=== PATIENT | female | born 1950 | race Hispanic/Latino ===

== ENCOUNTER 2017-08-16 00:33 | Inpatient (IN) | payer MEDICARE, OTHER ==
[~2017-08-16] VITALS: Ht 149.9 cm; Wt 56.2 kg
[~2017-08-16 00:33] MED LIST: ANUSOL HC25 MG/SUPP RC; CROMOLYN OP; DEXTROMETHORPHAN PO; GUAIFENESIN PO; LEVALBUTEROL IH; LEVAQUIN500 MG PO; METFORMIN HCL500 MG PO; METFORMIN HYDR100 GM PO; Z.0.CIPRO500 MG PO; Z.0.CIPROFLOXACIN500 PO; Z.0.COLACE100 MG PO; Z.0.CRESTOR40 MG PO; Z.0.FENOFIBRATE160 M PO; Z.0.GLIMEPIRIDE4 MG PO; Z.0.LISINOPRIL10 MG PO; Z.0.METOPROLOL TART5 PO; Z.0.MOTRIN800 MG PO; Z.0.NEXIUM40 MG PO; Z.0.PLAVIX75 MG PO; Z.0.VICODIN HP TAB1 PO; Z.1.ISOSORBIDE MONO3 PO; [UNRECOGNIZED DRUG - OTHER] PO; [UNRECOGNIZED DRUG - OTHER] TP
[2017-08-16 01:00] LABS: BASOPHILS % 0.4 % (0.0-1.0); EOSINOPHILS # (AUTO) 0.2 (0.0-0.4); EOSINOPHILS % 1.8 % (0.0-6.0); HEMATOCRIT 36.9 % (34.2-44.1); HEMOGLOBIN 12.1 g/dL (12.0-16.0); MEAN CORPUSCULAR HEMOGLOBIN 27.2 pg (28-32); MEAN CORPUSCULAR HGB CONC 32.8 g/dL (31-35); MEAN CORPUSCULAR VOLUME 82.9 fL (81-99); MONOCYTES # (AUTO) 0.5 (0.2-0.8); MONOCYTES % 4.6 % (4.4-11.3); NEUTROPHILS # (AUTO) 7.3 (2.1-6.9); PLATELET COUNT 237 x10e3/uL (140-360); RED BLOOD COUNT 4.45 x10e6/uL (3.6-5.1); RED CELL DISTRIBUTION WIDTH 14.6 % (11.7-14.4)
[2017-08-16] MEDS ORDERED: DIATRIZOATE MEGL/DIATRIZOA SOD 30 ML BTL PO ONE (01:01)
[2017-08-16 01:04] LABS: INR 0.87; PARTIAL THROMBOPLASTIN TIME 28.6 seconds (23.8-35.5); PROTHROMBIN TIME 12.3 seconds (11.9-14.5)
[2017-08-16 01:11] LABS: BILIRUBIN,URINE 1+ (NEGATIVE); KETONES,URINE NEGATIVE (NEGATIVE); LEUKOCYTE ESTERASE ,URINE 2+ (NEGATIVE); NITRITE,URINE NEGATIVE (NEGATIVE); PROTEIN,URINE DIPSTICK 3+ (NEGATIVE); URINE UROBILINOGEN 1 mg/dL (0.2 - 1)
[2017-08-16 01:13] LABS: CLARITY,URINE SL CLOUDY (CLEAR); COLOR,URINE YELLOW (YELLOW)
[2017-08-16 01:14] LABS: ALANINE AMINOTRANSFERASE 24 IU/L (0-55); ALBUMIN 4.1 g/dL (3.5-5.0); ALKALINE PHOSPHATASE 85 IU/L (40-150); AMYLASE 107 U/L (25-125); BLOOD UREA NITROGEN 22 mg/dL (7-26); BUN/CREATININE RATIO 28 (6-25); CALCIUM 9.9 mg/dL (8.4-10.2); CARBON DIOXIDE 24 mmol/L (22-29); CREATINE KINASE 65 IU/L (29-168); CREATININE, SERUM 0.78 mg/dL (0.57-1.11); EST GLOMERULAR FILTRATION RATE > 60 ML/MIN (60-); GLUCOSE 204 mg/dL (74-118); LIPASE 16 U/L (8-78)
[2017-08-16 01:24] LABS: CHLORIDE 101 mmol/L (98-107); MAGNESIUM 1.9 MG/DL (1.3-2.1); POTASSIUM 4.3 mmol/L (3.5-5.1); SODIUM 139 mmol/L (136-145)
[2017-08-16 01:25] LABS: ANION GAP 18.3 mmol/L (8-16)
[2017-08-16 01:26] LABS: BACTERIA,URINE FEW /HPF; EPITHELIAL CELLS,URINE FEW /LPF; RBC,URINE 0-5 /HPF (0-5)
[2017-08-16] MEDS ORDERED: PANTOPRAZOLE 40 MG 10ML VIAL IV STA (01:36)
[2017-08-16] MEDS ORDERED: MORPHINE SULFATE 2 MG/ML SYR IV STA (01:36)
[2017-08-16] MEDS ORDERED: SODIUM CHLORIDE 0.9% 1000ML 1,000 ML IV STA (01:36)
[2017-08-16] MEDS ORDERED: ONDANSETRON HCL INJ 2 MG/ML VIAL IV STA ×2 (01:36→07:26)
--- NOTE | 2017-08-16 03:49 | Diagnostic Imaging Report ---
EXAM: CHEST SINGLE (PORTABLE), AP 1 view ORDER DATE: 08/16/2017 12:49 AM Time stamp on exam: 0316 hours INDICATION: Abdominal pain, vomiting COMPARISON: None FINDINGS: LINES/TUBES: None LUNGS: No consolidations or edema. PLEURA: No effusions or pneumothorax. HEART AND MEDIASTINUM: Normal size and contour. Median sternotomy wires. BONES AND SOFT TISSUES: Distended stomach. IMPRESSION: No acute thoracic abnormality. Distended stomach. Signed by: Dr. Mariel Vásquez M.D. on 08/16/2017 3:46 AM
--- NOTE | 2017-08-16 03:49 | Diagnostic Imaging Report ---
EXAM: CT ABDOMEN AND PELVIS with IV CONTRAST DATE: 08/16/2017 12:49 AM Time stamp on Exam: 0309 hours INDICATION: Abdominal pain, vomiting COMPARISON: CT of the abdomen and pelvis January 11, 2017 TECHNIQUE: The abdomen and pelvis were scanned using a multidetector helical scanner. Coronal and sagittal reformations were obtained. Routine protocol performed. IV Contrast: 100 cc Isovue-370 Oral Contrast: Gastrografin CTDIvol has been reviewed. It is below the limits set by the Radiation Protocol Committee (RPC). FINDINGS: LOWER THORAX: No consolidations LIVER: No masses BILIARY: Cholelithiasis without evidence of cholecystitis SPLEEN: No masses PANCREAS: No masses ADRENALS: No nodules KIDNEYS: Symmetric perfusion. No enhancing masses. No hydronephrosis. GI TRACT: The stomach is distended and contains layering debris. Small bowel obstruction with transition point at the site of prior small bowel anastomosis in the left lower quadrant of the abdomen. There are is associated mesenteric edema and a few loops of small bowel with wall thickening. VESSELS: Surgical changes of aortobiiliac bypass graft PERITONEUM/RETROPERITONEUM: No free air or fluid. Mesenteric edema. LYMPH NODES: No lymphadenopathy REPRODUCTIVE ORGANS: Not visualized BLADDER: Unremarkable SOFT TISSUES: Unremarkable BONES: No suspicious bone lesions. IMPRESSION: Small bowel obstruction with transition point at site of prior small bowel resection. Associated mesenteric edema and thickened wall of a few loops of involved small bowel raises concern for closed loop obstruction with early ischemia. Signed by: Dr. Mariel Vásquez M.D. on 08/16/2017 3:45 AM
[2017-08-16] MEDS ORDERED: BENZOCAINE/TETRACAINE/BUTAMBEN AERO SPRAY 56 GM CAN TOP STA (03:52)
[2017-08-16] MEDS ORDERED: LORAZEPAM INJ 2 MG/ML VIAL IV ONE (04:30)
[2017-08-16] MEDS: PIPER-TAZ 3.375 GM 50 ML IV SCH ×4 (04:40→18:27)
[2017-08-16] MEDS: SODIUM CHLORIDE 0.9% 1000ML 1,000 ML IV SCH ×3 (05:00→21:10)
[2017-08-16] MEDS ORDERED: DEXTROSE 50% SYRINGE 50 ML IV PRN (05:15)
--- OUTSIDE RECORDS SUMMARY | 2017-08-16 05:22 | XMS REPORT ---
Author Author [facility] Address Unknown Phone Unavailable Care Team Providers Care Consultant [employer]. Vice President [employer] ) Name Role Phone CLARA LOWE Unavailable Unavailable Problems This patient has no known problems. Allergies, Adverse Reactions, Alerts This patient has no known allergies or adverse reactions. Medications This patient has no known medications. Results Test Description Test Time Test Comments Text Results Atomic Results Result Comments CHEST SINGLE (PORTABLE) [place] [address] Patient Name: SHELLI RICE MR #: [id number] : 1950 Age/Sex: 67/F Req #: [id number] Adm Physician: Ordered by: CLARA LOWE MD Report #: [id number] Location: ER Room/Bed: Procedure: [id number] DX/CHEST SINGLE (PORTABLE) Exam Date: Exam Time: REPORT STATUS: Signed EXAM: CHEST SINGLE (PORTABLE ), AP 1 view ORDER DATE: 08/16/2017 12:49 AM Time stamp on exam: 0316 hours INDICATION: Abdominal pain, vomiting COMPARISON: None FINDINGS: LINES/ TUBES: None LUNGS: No consolidations or edema. PLEURA: No effusions or pneumothorax. HEART AND MEDIASTINUM: Normal size and contour. Median sternotomy wires. BONES AND SOFT TISSUES: Distended stomach. IMPRESSION: No acute thoracic abnormality. Distended stomach. Signed by: Dr. Ana Dyer M.D. on 08/16/2017 3:46 AM Dictated By: ANA DYER MD 5 Transcribed By: NOHEMI on 08/16/17345 COPY TO: CLARA LOWE MD CT ABDOMEN/PELVIS W [place] [address] Patient Name: SHELLI RICE MR #: [id number] : 1950 Age/Sex: 67/F Req #: [id number] Adm Physician: Ordered by: CLARA LOWE MD Report #: [id number] Location: ER Room/Bed: Procedure: [id number] CT/CT ABDOMEN/PELVIS W Exam Date: Exam Time: REPORT STATUS: Signed EXAM: CT ABDOMEN AND PELVIS with IV CONTRAST DATE: 08/16/2017 12:49 AM Time stamp on Exam: 0309 hours INDICATION: Abdominal pain , vomiting COMPARISON: CT of the abdomen and pelvis January 11, 2017 TECHNIQUE : The abdomen and pelvis were scanned using a multidetector helical scanner. Coronal and sagittal reformations were obtained. Routine protocol performed. IV Contrast: 100 cc Isovue-370 Oral Contrast: Gastrografin CTDIvol has been reviewed. It is below the limits set by the Radiation Protocol Committee (RPC). FINDINGS: LOWER THORAX: No consolidations LIVER: No masses BILIARY: Cholelithiasis without evidence of cholecystitis SPLEEN: No masses PANCREAS: No masses ADRENALS: No nodules KIDNEYS: Symmetric perfusion. No enhancing masses. No hydronephrosis. GI TRACT: The stomach is distended and contains layering debris. Small bowel obstruction with transition point at the site of prior small bowel anastomosis in the left lower quadrant of the abdomen. There are is associated mesenteric edema and a few loops of small bowel with wall thickening. VESSELS: Surgical changes of aortobiiliac bypass graft PERITONEUM/RETROPERITONEUM: No free air or fluid. Mesenteric edema. LYMPH NODES: No lymphadenopathy REPRODUCTIVE ORGANS: Not visualized BLADDER: Unremarkable SOFT TISSUES: Unremarkable BONES: No suspicious bone lesions. IMPRESSION: Small bowel obstruction with transition point at site of prior small bowel resection. Associated mesenteric edema and thickened wall of a few loops of involved small bowel raises concern for closed loop obstruction with early ischemia. Signed by : Dr. Ana Dyer M.D. on 08/16/2017 3:45 AM Dictated By: ANA DYER MD 0345 Transcribed By: NOHEMI on 08/16/17344 COPY TO: CLARA LOWE MD
[2017-08-16] MEDS: SODIUM CHLORIDE 0.9% 250ML IRRIG IR SCH ×2 (07:12→12:10)
[2017-08-16] MEDS: INSULIN REGULAR, HUMAN 100 UNIT/1 ML 3ML VIAL SQ SCH ×4 (07:55→21:00)
[2017-08-16 08:09] VITALS: BP 161/71
[2017-08-16] MEDS ORDERED: IOPAMIDOL 370 MG/ML 200 ML INFUS..BTL INJ ONE (08:56)
[2017-08-16] MEDS ORDERED: SODIUM CHLORIDE 0.9% 50ML 50 ML ONE (08:56)
[2017-08-16] MEDS ORDERED: SUCRALFATE1 GM PO (09:26)
[2017-08-16] MEDS ORDERED: METOPROLOL TART25 MG PO (09:26)
[2017-08-16] MEDS ORDERED: FOLIC ACID1 MG PO (09:26)
[2017-08-16] MEDS ORDERED: ACETAMINOPHEN 120 MG SUPP PR PRN (11:45)
[2017-08-16] MEDS ORDERED: NITROGLYCERIN 0.4 MG PATCH TOP PRN (11:45)
[2017-08-16] MEDS ORDERED: ALBUTEROL/IPRATROPIUM 3 ML NEB NEB PRN (11:45)
[2017-08-16 11:47] VITALS: BP 164/72
[2017-08-16 15:24] LABS: CREATINE KINASE 40 IU/L (29-168)
[2017-08-16 15:58] VITALS: BP 170/80
[2017-08-16 17:25] VITALS: BP 170/80
--- NOTE | 2017-08-16 17:59 | Consultation ---
DATE OF CONSULTATION: August 16, 2017 This is a 67-year-old woman who presented to the hospital because of abdominal pain, which is mainly in the epigastric area associated with some nausea and vomiting. The patient denies any bleeding along with this problem. Her workup so far revealed that the CBC was okay. Her CMP was okay. She did have a CAT scan of the abdomen and pelvis earlier which showed small bowel obstruction with transition point at the site of the prior small bowel resections. There is associated mesenteric edema and thickened wall of a few loops in above area. She said that she had bowel resection because of an obstruction before. Her other medical problem is significant again from previous history of small bowel obstruction as mentioned before, history of hypertension, history of diabetes, history of heart disease, history of coronary artery disease. She is status post hysterectomy. She apparently colonoscopy a couple of years or so ago, which was supposedly normal. ALLERGIES: NONE. SOCIAL HISTORY: Denies any alcohol abuse. FAMILY HISTORY: Noncontributory. HOME MEDICATIONS: On admission, including Plavix, Colace, fenofibrate, folic acid, hydrocodone, isosorbide, lisinopril, metformin, metoprolol, Crestor. REVIEW OF SYSTEMS: Denies any chest pain. Denies any shortness of breath. Denies any dysphagia or odynophagia. Denies any dysuria or hematuria or any kind of syncopal episode. PHYSICAL EXAMINATION GENERAL: The patient is awake, alert, appears to be stable and not in any acute distress. VITAL SIGNS: Afebrile with stable vital signs. HEENT: Normocephalic, atraumatic. Sclerae anicteric. NECK: Supple. HEART: Sounds regular. LUNGS: Clear. ABDOMEN: Soft. There is some mild epigastric tenderness. No rebound or mass. Not distended. EXTREMITIES: No edema or clubbing. LABORATORY DATA: CBC was okay. Chemistry is okay. CAT scan as mentioned before. IMPRESSION 1. Abdominal pain, nausea and vomiting. 2. Small bowel obstruction. RECOMMENDATIONS: An attempt to put in an NG tube was attempted several times, but not successful. The recommendation is to keep n.p.o. at this point. Agree with following KUB and on antibiotic for now. Follow clinically. Job#: [id number] cc:ZAYRA KELLEY MD
[2017-08-16] MEDS: METOPROLOL TARTRATE INJ 1 MG/ML VIAL IV SCH (21:00)
[2017-08-17] MEDS: SODIUM CHLORIDE 0.9% 1000ML 1,000 ML IV SCH ×2 (05:10→13:10)
[2017-08-17] MEDS: PIPER-TAZ 3.375 GM 50 ML IV SCH ×5 (05:31→23:46)
--- NOTE | 2017-08-17 06:26 | Consultation ---
DATE OF CONSULTATION: August 16, 2017 CHIEF COMPLAINT: Abdominal pain and vomiting. HISTORY OF PRESENT ILLNESS: This patient is a 67-year-old female with a 1-day history of periumbilical abdominal pain, severe in nature with associated vomiting times 2 yesterday. No hematemesis. Last bowel movement was yesterday. None today. Pain is somewhat better. Patient had an admission for small-bowel obstruction last year, which resolved spontaneously. PAST MEDICAL HISTORY: Positive for hypertension, diabetes, hyperlipidemia, peripheral vascular disease, intestinal obstruction. SURGICAL HISTORY: Positive for aorto-bifem bypass and intestinal resection for obstruction. ALLERGIES: PATIENT IS ALLERGIC TO CODEINE AND ASPIRIN. SOCIAL HABITS: No smoking or alcohol abuse. REVIEW OF SYSTEMS: No chest pain or shortness of breath at the present time. PHYSICAL EXAMINATION VITALS: Stable. Afebrile. GENERAL: She is awake, alert and in mild discomfort. HEENT: Sclerae anicteric. NECK: Supple. LUNGS: Clear. HEART: Regular rate and rhythm. No murmur. ABDOMEN: Soft. There is tenderness to palpation in the supraumbilical area with some guarding, but no rebound. EXTREMITIES: Without cyanosis or edema. White cell count is 9, hemoglobin of 12. Creatinine of 0.8. Liver function tests within normal limits. Lipase 16. CT scan showed intestinal obstruction with transitional point at the site of prior anastomosis. There is associated edema in the mesentery. ASSESSMENT: Intestinal obstruction likely secondary to adhesions. PLAN: Close monitoring. Patient may need intervention operatively if the pain persists or worsens. Thank you for the consultation. Job#: [id number] BAKARI
[2017-08-17] MEDS: MORPHINE SULFATE 2 MG/ML SYR IV PRN ×2 (06:35→10:35)
[2017-08-17] MEDS: ONDANSETRON HCL INJ 2 MG/ML VIAL IV PRN ×2 (06:35→10:30)
--- NOTE | 2017-08-17 06:38 | Diagnostic Imaging Report ---
Exam: AP view of the chest and supine and erect views of the abdomen August 17, 2017 at 0555 hours Comparison: AP view of the chest August 16, 2017 Indication: Small bowel obstruction Findings: Stable appearance of the chest. Oral contrast seen throughout the colon. Mildly dilated loops of central small bowel with wall thickening. No evidence of free air. Impression: 1. Stable findings of partial small bowel obstruction with wall thickening. 2. No acute cardiothoracic abnormality. Signed by: Dr. Mariel Vásquez M.D. on 08/17/2017 6:34 AM
--- NOTE | 2017-08-17 06:51 | History and Physical ---
PRESENTING COMPLAINT: Sudden onset apparent mid abdominal pain that started last night. HISTORY OF PRESENT ILLNESS: A 67-year-old female was admitted from the ER. The patient was brought to the ER from home by her family. The patient tells that she had mid abdominal pain that started yesterday morning and got gradually worse. The pain was moderate to severe initially. It became unbearable along with 2 episodes of vomiting. Vomitus did not contain any blood. The patient had last bowel movement yesterday morning, was normal in consistency. Did not have any blood in stool or black stool, as per the patient's statement. The patient had similar episode in January 2017. The patient was diagnosed having small bowel obstruction at that time which resolved without any surgery at that time. The patient had history of bowel surgery in the remote past for obstruction at [facility], as per her 's statement. She denied any fever, chest pain, shortness of breath, palpitations. The patient did not have similar episode since her discharge from this hospital in January 2017, as per her statement. REVIEW OF SYSTEMS: CONSTITUTIONAL: No fevers, chills, rigor. ENT: No nasal congestion or sore throat. No earache. No visual disturbance. CARDIOVASCULAR: No chest pain, palpitations or shortness of breath. PULMONARY: No cough and no hemoptysis. GI: Abdominal pain with nausea and vomiting, as per HPI. No trace of bloody stool or black stool. No trace of bloody vomitus. : No dysuria. No hematuria. MUSCULOSKELETAL, SKIN, LYMPHATIC AND JUGULAR: No joint pain, no joint swelling. No skin rash, no swelling. NEUROLOGIC: No loss of consciousness, seizure or headache. PAST MEDICAL HISTORY: Small bowel obstruction in 2017, treated conservatively, small bowel obstruction necessitating surgery in the remote past, done at [facility] as per the patient's statement. Diabetes mellitus, type 2. Hypertension. Hyperlipidemia. CAD status post CABG in 2000 at [facility], as per the patient's 's statement. PAST SURGICAL HISTORY: CABG. Back surgery. Bowel surgery for obstruction with dissection. Hysterectomy. The patient had colonoscopy more than 2 years ago, as per the patient's 's statement, was normal at that time. ALLERGIES: ASPIRIN, CODEINE, EXACT REACTION NOT KNOWN. HOME MEDICATIONS: As per medication reconciliation sheet. SOCIAL HISTORY: The patient lives at home with her family. Her is at the bedside. HABITS: No smoking, no drinking, no substance abuse history. FAMILY HISTORY: Positive for diabetes mellitus and hypertension, as per the electronic medical record. PHYSICAL EXAMINATION VITAL SIGNS: Blood pressure 166/84, pulse 84-103, temperature 98.8. Respirations 20. SPO2 95% on room air. GENERAL: Alert, lying in bed without any acute distress now after narcotic pain medication, feeling better than last night. HEENT: No pallor. No icterus. Pupils equally reacting. Oral mucosa slightly dry. NECK: No JVD, no carotid bruits, no lymphadenopathy, no thyromegaly. HEART: S1 and S2 regular. No murmur. LUNGS: Clear to auscultation. ABDOMEN: Mild diffuse tenderness. No palpable masses. Bowel sounds active in all quadrants. EXTREMITIES: No edema, cyanosis or clubbing. NEUROLOGICAL: Motor grossly equal on both sides. LABORATORY DATA: EKG normal sinus rhythm at the rate of 80 beats per minute, small Q waves in inferior leads, inverted T-waves in V1 and V2. Intervals within normal limits. CBC: WBC 9.97, hemoglobin 12, hematocrit 36, platelets 237,000, neutrophils 73, lymphocytes 20, PT 12.3, INR 0.87, PTT 28.6. Chemistry panel: Sodium 139, potassium 4.3, chloride 101, CO2 of 24, anion gap 14, BUN 22, creatinine 0.78, glucose 204, calcium 9.9, magnesium 1.9, total bilirubin 0.5, AST 20, ALT 24, alkaline phosphatase 85, CK 65, CK MB 1.6, troponin I is 0.001, total protein 8.2, albumin 4.1, globulin 4.1, amylase 197, lipase 16. Urinalysis: Protein 3+, negative for glucose or ketones, leukocyte esterase 2+, WBCs 11-20, RBCs 0-5. RADIOLOGICAL DATA: Chest x-ray single few no acute abnormality, no consolidation, effusion, pneumothorax or pulmonary edema. Cardiac shadow within normal limits. sternotomy wire was present. CT of the abdomen and pelvis with IV contrast, cholelithiasis without evidence of cholecystitis. Stomach is distended and contained layering . Small bowel obstruction with transition point at the site of prior small bowel anastomosis in the left lower quadrant of the abdomen. There is associated mesenteric edema, and a few loops of small bowel with wall thickening. Surgical changes of aortoiliac bypass graft. ASSESSMENT AND PLAN 1. Acute abdominal pain with nausea and vomiting due to small bowel obstruction. Her CT abdomen is concerning for small bowel obstruction with probable mesenteric edema and ischemia. Would keep the patient n.p.o. The patient could not tolerate Nasogastric suction. Will follow with general surgery, Dr. Chavez, which the patient from prior hospitalization was consulted from the ER. Dr. Barrera is covering. Would follow his recommendations. 2. History of aortoiliac bypass. On CT scan the patient might have intestinal ischemia. Would follow the general surgery and gastroenterologic recommendations. Dr. Watts is consulted from the ER. 3. Coronary artery disease, status post coronary artery bypass graft. The patient does not have any chest pain. EKG does not show any acute change. Troponin is also normal. Will keep the patient on telemetry. If needed, will consult his potato chip packaging machine operator. Her potato chip packaging machine operator is Dr. Westbrook, as per her 's statement, who probably does not come to this hospital. If needed, will consult Dr. Guzman. 4. Diabetes mellitus, type 2. Continue the patient on sliding scale insulin. She will be n.p.o. now. Her glucose level is about 200. Would keep the patient on IV normal saline. She does not have any feature of diabetic ketoacidosis. Her anion gap is slightly elevated. The urine does not contain any ketone bodies. 5. Hypertension. Keep the patient on IV metoprolol for now. 6. Deep venous thrombosis prophylaxis. Keep the patient on subcu Lovenox. 7. Prophylaxis for intra-abdominal infection, peritonitis. Continue the patient on Zosyn that was started in the ER. Have the blood cultures, and follow the culture report. ADVANCED DIRECTIVE: The patient is full code. Discharge plans will depend on the patient's response to treatment. The patient is sick at this point in time. The patient's condition is explained to the patient's at bedside today. He verbalized understanding. Job#: [id number] [id number]
[2017-08-17 07:02] LABS: BASOPHILS % 0.8 % (0.0-1.0); EOSINOPHILS # (AUTO) 0.2 (0.0-0.4); EOSINOPHILS % 3.9 % (0.0-6.0); HEMATOCRIT 33.9 % (34.2-44.1); HEMOGLOBIN 10.9 g/dL (12.0-16.0); LYMPHOCYTES % 38.2 % (18.0-39.1); MEAN CORPUSCULAR HEMOGLOBIN 27.3 pg (28-32); MEAN CORPUSCULAR HGB CONC 32.2 g/dL (31-35); MONOCYTES # (AUTO) 0.3 (0.2-0.8); MONOCYTES % 6.2 % (4.4-11.3); NEUTROPHILS # (AUTO) 2.7 (2.1-6.9); NEUTROPHILS % 50.7 % (38.7-80.0); PLATELET COUNT 216 x10e3/uL (140-360); RED BLOOD COUNT 3.99 x10e6/uL (3.6-5.1); RED CELL DISTRIBUTION WIDTH 14.9 % (11.7-14.4)
[2017-08-17] MEDS: INSULIN REGULAR, HUMAN 100 UNIT/1 ML 3ML VIAL SQ SCH ×4 (07:30→20:42)
[2017-08-17 07:32] LABS: ALANINE AMINOTRANSFERASE 17 IU/L (0-55); ALBUMIN 3.3 g/dL (3.5-5.0); ALBUMIN/GLOBULIN RATIO 0.9 (0.8-2.0); ALKALINE PHOSPHATASE 72 IU/L (40-150); AMYLASE 69 U/L (25-125); ANION GAP 10.7 mmol/L (8-16); BLOOD UREA NITROGEN 8 mg/dL (7-26); BUN/CREATININE RATIO 12 (6-25); CALCIUM 8.6 mg/dL (8.4-10.2); CARBON DIOXIDE 23 mmol/L (22-29); CHLORIDE 109 mmol/L (98-107); CREATININE, SERUM 0.69 mg/dL (0.57-1.11); EST GLOMERULAR FILTRATION RATE > 60 ML/MIN (60-); GLUCOSE 126 mg/dL (74-118); LIPASE 12 U/L (8-78); POTASSIUM 3.7 mmol/L (3.5-5.1); SODIUM 139 mmol/L (136-145)
[2017-08-17 07:36] LABS: B-TYPE NATRIURETIC PEPTIDE2 59.6 pg/mL (0-100)
[2017-08-17 07:43] LABS: CHOL/HDL RATIO 4.3 (3.0-3.6)
[2017-08-17 08:00] VITALS: BP 170/80
[2017-08-17 08:06] VITALS: BP 142/70
[2017-08-17] MEDS: PANTOPRAZOLE 40 MG 10ML VIAL IV SCH (09:00)
[2017-08-17] MEDS: METOPROLOL TARTRATE INJ 1 MG/ML VIAL IV SCH ×2 (09:00→20:49)
[2017-08-17] MEDS ORDERED: BISACODYL 10 MG SUPP PR NR (09:30)
[2017-08-17] MEDS ORDERED: CLOPIDOGREL BISULFATE 75 MG TAB PO SCH (10:00)
[2017-08-17] MEDS: FOLIC ACID 1 MG TAB PO SCH (10:00)
[2017-08-17] MEDS: LISINOPRIL 20 MG TAB PO SCH (10:00)
[2017-08-17 10:11] LABS: THYROID STIMULATING HORMONE 0.949 uIU/mL (0.350-4.940)
[2017-08-17] MEDS: ISOSORBIDE MONONITRATE 30 MG TAB CR PO SCH (10:30)
[2017-08-17 13:10] VITALS: BP 159/60
[2017-08-17 16:58] VITALS: BP 142/50
[2017-08-17] MEDS: DOCUSATE SODIUM 100 MG CAP PO SCH (17:00)
[2017-08-17] MEDS: ENOXAPARIN SOD INJ 40 MG/0.4 ML SYR SC SCH (17:00)
[2017-08-17] MEDS ORDERED: METOPROLOL TARTRATE 25 MG TAB PO SCH (17:00)
--- NOTE | 2017-08-17 18:50 | Consultation ---
DATE OF CONSULTATION: August 17, 2017 CARDIOLOGY CONSULTATION REASON FOR CONSULTATION: Chest pain. HISTORY OF PRESENT ILLNESS: Ms. Neil is a 67-year-old lady with past medical history of hypertension, type 2 diabetes, hypercholesterolemia, coronary artery disease with prior history of 2-vessel bypass operation by Dr. Mack as well as peripheral arterial disease with prior history of aortobifemoral bypass. She has a remote history of gastric ulceration, anemia and has also had prior small bowel resection and has had previous small bowel obstruction about a year ago. She presents with progressively worsening dull abdominal pain, ache that began 2 days ago and associated with malaise, nausea and vomiting with constipation. She denied any chest pain up until yesterday where she had one episode of left-sided parasternal sharp pain that radiated to the right chest wall, nonpleuritic associated with nausea and the abdominal pain as well. She denies that this is similar to her previous angina per se. Prior to this hospitalization, she maintains that she has been active without any changes in functional capacity and endorses Class II exertional dyspnea. She has been risk stratified with stress testing with her PCP within the last year, and was "normal". The patient upon arrival had abdominal imaging performed which did demonstrate the presence of a small bowel obstruction at a previous surgical resection site, and currently is conservatively managed and GI and general surgery is on the case. PAST MEDICAL HISTORY: 1. Hypertension, essential. 2. Hypercholesterolemia. 3. Peripheral artery disease with prior history of aortobifemoral bypass surgery in 1999. 4. Coronary artery disease with prior history of CABG with left heart catheterization in September 2014 revealing a patent LI to LAD and 100% saphenous vein graft occlusion. However, her coronary anatomy revealed only 50% stenosis in the LAD and circumflex artery, and probably occluded due to good [place] flow. 5. Diabetes mellitus, type 2. 6. History of gastric ulcer. 7. History of chronic iron deficiency anemia. 8. History of small bowel torsion, status post partial bowel resection in 2005. OTHER SURGERIES 1. History of lower back surgery in 1977. 2. History of hysterectomy in 2011. 3. History of remote appendectomy. FAMILY HISTORY: Mother at 48 due to complications of ovarian cancer. Father alive at 86, has BPH. She has a brother who has hypertension, a sister who has esophageal cancer and they are in their 60s. SOCIAL HISTORY: She is . She is a former smoker, quit in the year 2000 after her CABG. Denies any alcohol or illicit drug use. ALLERGIES: ASPIRIN WHICH CAUSES ANGIOEDEMA. CODEINE CAUSES MOOD ISSUES. SEAFOOD CAUSES ANAPHYLAXIS. MEDICATIONS: 1. Plavix 75 mg daily. 2. Fenofibrate 160 mg daily. 3. Imdur 30 mg daily. 4. Lisinopril 10 mg daily. 5. Metoprolol 25 mg b.i.d. 6. Crestor 40 mg nightly. 7. Metformin 500 mg daily. 8. Carafate 1 gram q.6 h. daily. REVIEW OF SYSTEMS: GENERAL: Positive for fatigue and malaise. Denies any fever or chills or any weight changes. HEENT: Denies any headaches, visual complaints, sore throat, stuffy nose. RESPIRATORY: Denies any pleuritic chest pain. Has class III exertional dyspnea. CARDIOVASCULAR: Chest pain as per HPI. Denies any palpitations, weight gain or lower extremity edema. GI: Positive for abdominal pain, nausea, vomiting and bowel obstruction, as noted above. Savannah has had a bowel movement this morning. : Denies any dysuria, pyuria, hematuria or change in urinary frequency. MUSCULOSKELETAL: Has lower back pains. Does have slight claudication in the calves. Does have history of peripheral arterial disease with aortobifemoral surgery. NEUROLOGIC: Denies any focal weakness, seizures, history of TIA or stroke. Does have known carotid disease and does endorse some peripheral neuropathy sensation in her lower extremities. The remainder of the review of systems negative other than otherwise mentioned. PHYSICAL EXAMINATION VITAL SIGNS: Height of 59 inches, weight of 124 pounds. Temperature 96.5, pulse 66, respiratory rate 18, blood pressure 142/50, O2 sat 97% on room air. GENERAL: This is a well-nourished, well-developed lady who currently appears relatively comfortable and in no acute distress. HEENT: Normocephalic and atraumatic. The extraocular movements are intact. Pupils are equal and reactive to light. Oropharynx is clear. NECK: No elevation of jugular venous pulsation. There is an audible right carotid bruit. CARDIOVASCULAR: Regular rate and rhythm. Normal S1 and S2. Soft, 2/6, systolic ejection murmur at the left lower sternal border. LUNGS: Reveal a midline sternotomy scar, but otherwise relatively clear to auscultation bilaterally. ABDOMEN: Soft. Mildly protuberant, does have old exploratory laparotomy surgical scar, diffusely tender to palpation, particularly in the upper right and left quadrants, there is hyperactive bowel sounds in the upper quadrants. BACK: No costovertebral angle tenderness. EXTREMITIES: Warm with 2+ bilateral radial pulses. There is aortobifemoral bypass with bilateral groin scars. However, femoral pulses appear to be preserved at 2+ and pedal pulses are 1+ and symmetric. NEUROLOGIC: Cranial nerves II through XII are intact. She moves all 4 extremities and is largely symmetric. LABORATORY DATA: White count of 5.3, hemoglobin 10.9 and hematocrit 33.9, platelets of 216,000, sodium 139, potassium 3.7, chloride 109, bicarb 23, BUN 8, creatinine 0.69, glucose 126. AST 17, ALT 17, alkaline phosphatase 72. Total protein 6.9. Albumin of 3.3. Total cholesterol 184. HDL 43, LDL 99. TSH is 0.949. BNP is 59.6. A1c is 6.6%. Troponin is less than 0.01 and 0.01. EKG reveals normal sinus rhythm. Normal axis and no ST-T wave changes concerning for ischemia. Chest x-ray shows distended stomach, but no acute cardiopulmonary issues. There is old midline sternotomy scar. CT of the abdomen and pelvis reveals signs of small bowel obstruction next to the prior site of resection. KUB shows partial small bowel obstructive changes. DIAGNOSES 1. Chest pain: Most likely referred pain from GI source. 2. Definite small bowel obstruction, likely secondary to adhesive type issue with GI and surgery on board and managing. 3. Coronary artery disease with prior history of coronary artery bypass graft. 4. Hypertension. 5. Type 2 diabetes. 6. Hypercholesterolemia. 7. Carotid artery disease with right carotid bruit. 8. Peripheral arterial disease with prior history of aortobifemoral bypass surgery. PLAN/RECOMMENDATIONS: 1. From a cardiovascular standpoint, treatment right now will be largely supportive. Will recommend holding antiplatelet therapy in light of need for any surgical interventions should her bowel obstruction not resolve. 2. Will check her echocardiogram to grossly evaluate her left ventricular function to make sure there is no interval change in EF. 3. Will check carotid Duplex to evaluate her carotid artery stenosis. 4. I appreciate GI consult and is currently receiving Protonix therapy and supportive care. 5. P.r.n. IV beta julián therapy should blood pressure and heart rate need it. 6. Will continue monitoring this patient. 7. Of note, the patient does report prior ischemic risk stratification with primary care physician within the past year and was told to be normal, which is reassuring. Job#: [id number] GH
[2017-08-17 20:00] VITALS: BP 150/67
[2017-08-18] VITALS: BP 143/66
[2017-08-18] MEDS: SODIUM CHLORIDE 0.9% 1000ML 1,000 ML IV SCH (00:21)
[2017-08-18 04:00] VITALS: BP 170/74
[2017-08-18] MEDS: PIPER-TAZ 3.375 GM 50 ML IV SCH ×3 (05:18→18:00)
[2017-08-18 06:19] LABS: BASOPHILS % 0.2 % (0.0-1.0); EOSINOPHILS # (AUTO) 0.2 (0.0-0.4); EOSINOPHILS % 4.1 % (0.0-6.0); HEMATOCRIT 28.8 % (34.2-44.1); HEMOGLOBIN 9.4 g/dL (12.0-16.0); LYMPHOCYTES # (AUTO) 1.5 (1.0-3.2); LYMPHOCYTES % 32.1 % (18.0-39.1); MEAN CORPUSCULAR HEMOGLOBIN 27.7 pg (28-32); MEAN CORPUSCULAR HGB CONC 32.6 g/dL (31-35); MONOCYTES # (AUTO) 0.3 (0.2-0.8); MONOCYTES % 6.8 % (4.4-11.3); NEUTROPHILS # (AUTO) 2.6 (2.1-6.9); NEUTROPHILS % 56.1 % (38.7-80.0); PLATELET COUNT 163 x10e3/uL (140-360); RED BLOOD COUNT 3.39 x10e6/uL (3.6-5.1); RED CELL DISTRIBUTION WIDTH 14.7 % (11.7-14.4)
[2017-08-18 06:40] LABS: ALANINE AMINOTRANSFERASE 13 IU/L (0-55); ALBUMIN 3.1 g/dL (3.5-5.0); ALKALINE PHOSPHATASE 64 IU/L (40-150); ANION GAP 11.4 mmol/L (8-16); BLOOD UREA NITROGEN 5 mg/dL (7-26); BUN/CREATININE RATIO 8 (6-25); CALCIUM 8.2 mg/dL (8.4-10.2); CARBON DIOXIDE 22 mmol/L (22-29); CHLORIDE 112 mmol/L (98-107); CREATININE, SERUM 0.62 mg/dL (0.57-1.11); EST GLOMERULAR FILTRATION RATE > 60 ML/MIN (60-); GLUCOSE 78 mg/dL (74-118); POTASSIUM 3.4 mmol/L (3.5-5.1); SODIUM 142 mmol/L (136-145)
[2017-08-18] MEDS: INSULIN REGULAR, HUMAN 100 UNIT/1 ML 3ML VIAL SQ SCH ×3 (07:30→21:00)
[2017-08-18 08:00] VITALS: BP 163/72
[2017-08-18] MEDS: PANTOPRAZOLE 40 MG 10ML VIAL IV SCH (08:58)
[2017-08-18] MEDS: DOCUSATE SODIUM 100 MG CAP PO SCH ×2 (09:00→17:00)
[2017-08-18] MEDS: ISOSORBIDE MONONITRATE 30 MG TAB CR PO SCH (09:00)
[2017-08-18] MEDS ORDERED: LISINOPRIL 10 MG TAB PO SCH (09:00)
[2017-08-18] MEDS: LISINOPRIL 20 MG TAB PO SCH (09:00)
[2017-08-18] MEDS: FOLIC ACID 1 MG TAB PO SCH (09:00)
[2017-08-18 11:54] VITALS: BP 153/75
--- NOTE | 2017-08-18 15:27 | Diagnostic Imaging Report ---
PROCEDURE:X-RAY ABDOMEN - KUB COMPARISON:Patients [facility], DX, ABDOMEN-1VIEW (KUB), 01/13/2017, 4:54. [facility], CT, CT ABDOMEN/PELVIS W, 08/16/2017, 2:53. INDICATIONS:SMALL BOWEL OBSTRUCTION FINDINGS: There are no dilated loops of bowel to suggest obstruction. Oral contrast is present within the colon and rectum from CT abdomen performed on August 16, 2017, excluding complete bowel obstruction. Findings on prior CT examination in retrospect are suggestive of enteritis. There are no masses or abnormal calcifications. There is no evidence of free air. No acute osseous abnormalities are present. CONCLUSION: Nonobstructive bowel gas pattern. Mariely Madsen M.D. Dictated by: Mariely Madsen M.D. on 08/18/2017 at 15:37 Electronically approved by: Mariely Madsen M.D. on 08/18/2017 at 15:37
[2017-08-18 16:33] VITALS: BP 166/71
[2017-08-18] MEDS: ENOXAPARIN SOD INJ 40 MG/0.4 ML SYR SC SCH (17:00)
[2017-08-18 20:00] VITALS: BP 150/66
[2017-08-18] MEDS: KCL 20MEQ/.9 SOD CHL 1,000 ML IV SCH (20:00)
[2017-08-18] MEDS: METOPROLOL TARTRATE INJ 1 MG/ML VIAL IV SCH (21:00)
[2017-08-19] VITALS (7 sets, daily range): BP systolic 142–207; BP diastolic 62–97
[2017-08-19] MEDS: PIPER-TAZ 3.375 GM 50 ML IV SCH ×4 (06:00→17:19)
[2017-08-19] MEDS: KCL 20MEQ/.9 SOD CHL 1,000 ML IV SCH ×2 (06:00→22:44)
[2017-08-19 07:24] LABS: ALANINE AMINOTRANSFERASE 14 IU/L (0-55); ALBUMIN 3.2 g/dL (3.5-5.0); ALBUMIN/GLOBULIN RATIO 0.8 (0.8-2.0); ALKALINE PHOSPHATASE 65 IU/L (40-150); ANION GAP 10.8 mmol/L (8-16); BLOOD UREA NITROGEN 6 mg/dL (7-26); BUN/CREATININE RATIO 9 (6-25); CARBON DIOXIDE 25 mmol/L (22-29); CHLORIDE 109 mmol/L (98-107); CREATININE, SERUM 0.68 mg/dL (0.57-1.11); EST GLOMERULAR FILTRATION RATE > 60 ML/MIN (60-); GLUCOSE 158 mg/dL (74-118); POTASSIUM 3.8 mmol/L (3.5-5.1); SODIUM 141 mmol/L (136-145)
[2017-08-19] MEDS: DOCUSATE SODIUM 100 MG CAP PO SCH ×2 (09:40→17:19)
[2017-08-19] MEDS: FOLIC ACID 1 MG TAB PO SCH (09:40)
[2017-08-19] MEDS: PANTOPRAZOLE 40 MG 10ML VIAL IV SCH (09:40)
[2017-08-19] MEDS: ISOSORBIDE MONONITRATE 30 MG TAB CR PO SCH (09:40)
[2017-08-19] MEDS: METOPROLOL TARTRATE INJ 1 MG/ML VIAL IV SCH ×2 (09:40→21:00)
[2017-08-19] MEDS: LISINOPRIL 20 MG TAB PO SCH (09:41)
[2017-08-19] MEDS: INSULIN REGULAR, HUMAN 100 UNIT/1 ML 3ML VIAL SQ SCH ×4 (09:43→21:30)
[2017-08-19] MEDS: ENOXAPARIN SOD INJ 40 MG/0.4 ML SYR SC SCH (17:19)
[2017-08-19] MEDS ORDERED: CRESTOR 10MG PO SCH ×2 (21:00)
[2017-08-19] MEDS: ONDANSETRON HCL INJ 2 MG/ML VIAL IV PRN (23:15)
[2017-08-19] MEDS: MORPHINE SULFATE 2 MG/ML SYR IV PRN (23:15)
[2017-08-20] VITALS: BP 119/66
[2017-08-20 00:15] VITALS: BP 175/68
[2017-08-20] MEDS: PIPER-TAZ 3.375 GM 50 ML IV SCH ×3 (00:47→11:52)
[2017-08-20] MEDS: MORPHINE SULFATE 2 MG/ML SYR IV PRN (03:15)
[2017-08-20] MEDS: ONDANSETRON HCL INJ 2 MG/ML VIAL IV PRN (03:15)
[2017-08-20] MEDS ORDERED: CLONIDINE HCL 0.1 MG TAB PO ONE (06:15)
[2017-08-20 06:20] LABS: BASOPHILS % 0.3 % (0.0-1.0); EOSINOPHILS # (AUTO) 0.2 (0.0-0.4); EOSINOPHILS % 2.7 % (0.0-6.0); HEMATOCRIT 30.5 % (34.2-44.1); HEMOGLOBIN 9.8 g/dL (12.0-16.0); LYMPHOCYTES # (AUTO) 1.8 (1.0-3.2); LYMPHOCYTES % 28.1 % (18.0-39.1); MEAN CORPUSCULAR HEMOGLOBIN 27.1 pg (28-32); MEAN CORPUSCULAR HGB CONC 32.1 g/dL (31-35); MEAN CORPUSCULAR VOLUME 84.5 fL (81-99); MONOCYTES # (AUTO) 0.4 (0.2-0.8); MONOCYTES % 6.9 % (4.4-11.3); NEUTROPHILS # (AUTO) 3.9 (2.1-6.9); NEUTROPHILS % 61.7 % (38.7-80.0); PLATELET COUNT 228 x10e3/uL (140-360); RED BLOOD COUNT 3.61 x10e6/uL (3.6-5.1); RED CELL DISTRIBUTION WIDTH 14.7 % (11.7-14.4)
[2017-08-20 06:41] LABS: ALANINE AMINOTRANSFERASE 15 IU/L (0-55); ALBUMIN 3.3 g/dL (3.5-5.0); ALBUMIN/GLOBULIN RATIO 0.9 (0.8-2.0); ALKALINE PHOSPHATASE 64 IU/L (40-150); ANION GAP 12.9 mmol/L (8-16); BLOOD UREA NITROGEN 13 mg/dL (7-26); BUN/CREATININE RATIO 17 (6-25); CALCIUM 8.9 mg/dL (8.4-10.2); CARBON DIOXIDE 29 mmol/L (22-29); CHLORIDE 105 mmol/L (98-107); CREATININE, SERUM 0.75 mg/dL (0.57-1.11); EST GLOMERULAR FILTRATION RATE > 60 ML/MIN (60-); GLUCOSE 160 mg/dL (74-118); POTASSIUM 3.9 mmol/L (3.5-5.1); SODIUM 143 mmol/L (136-145)
[2017-08-20 07:00] VITALS: BP 181/97
[2017-08-20] MEDS: INSULIN REGULAR, HUMAN 100 UNIT/1 ML 3ML VIAL SQ SCH ×2 (08:26→11:30)
[2017-08-20] MEDS: FOLIC ACID 1 MG TAB PO SCH (08:27)
[2017-08-20] MEDS: METOPROLOL TARTRATE INJ 1 MG/ML VIAL IV SCH (08:27)
[2017-08-20] MEDS: ISOSORBIDE MONONITRATE 30 MG TAB CR PO SCH (08:27)
[2017-08-20] MEDS: PANTOPRAZOLE 40 MG 10ML VIAL IV SCH (08:27)
[2017-08-20] MEDS: DOCUSATE SODIUM 100 MG CAP PO SCH (08:27)
[2017-08-20] MEDS: LISINOPRIL 20 MG TAB PO SCH (08:28)
[2017-08-20 08:30] VITALS: BP 199/84
[2017-08-20] MEDS ORDERED: CLOPIDOGREL BISULFATE 75 MG TAB PO SCH (09:00)
[2017-08-20] MEDS ORDERED: MAGNESIUM OXIDE 400 MG TAB PO NR (10:30)
--- NOTE | 2017-08-20 11:13 | Discharge Summary ---
HISTORY: This is a 67-year-old female, patient of mine, presented to the emergency room with a complaint of abdominal pain, nausea, and vomiting. ADMITTING INPATIENT DIAGNOSES 1. Small bowel obstruction with possible colitis. 2. Diabetes mellitus. 3. Coronary artery disease. 4. Hypertension. HOSPITAL COURSE SUMMARY: Patient was admitted with the above diagnoses. Patient was kept n.p.o. and IV fluids were given. Surgery consult was done by Dr. Barrera and GI consult by Dr. Ernandez. At one point, patient was advised to have surgery as the patient had severe pain and severe sign of obstruction and the patient had elected for waiting a little longer. Patient subsequently had improved, so no surgery was needed and patient improved. Cardiac evaluation was being done for possible surgery. Patient has a regular magneto electrician, Dr. Westbrook, but as he could not come to this hospital, Dr. Neely was consulted. The patient had a carotid and an echo done, and patient had carotid bruit and patient has a right carotid lesion, which is significant. So, patient was advised to start back on aspirin and Plavix. Patient to follow up with cardiology for possible angiogram or the carotid. Patient was advised to continue taking stool softener to avoid any constipation and increase fluid. The patient will be followed up as outpatient next week with me as well as with the magneto electrician. ZAYRA KELLEY MD Job#: [id number] SAK
[2017-08-20 13:17] VITALS: BP 179/72
== END 2017-08-20 12:10 | disposition home or self-care (01) | DRG 389 ==
LOC: ER 00:33 → ERHOLD 05:18 → MED/SURG2 16:32
PROVIDERS: ADMIT Internal Medicine; ATTEND Internal Medicine
DX: K56.51 Intestinal adhesions [bands], with partial obstruction (principal); K55.9 Vascular disorder of intestine, unspecified; R11.10 Vomiting, unspecified; I25.10 Atherosclerotic heart disease of native coronary artery without angina pectoris; K52.9 Noninfective gastroenteritis and colitis, unspecified
CPT/HCPCS: 36415; 71045; 74018; 74022; 74177; 80053; 80061; 81001; 82150; 82550; 82553; 82948; 83036; 83605; 83690; 83735; 83880; 84443; 84484; 85025; 85610; 85730; 87040; 87086; 93005; 93306; 93880; 96367; 96376; 97139; 99284; J1650; J2060; J2270; J2405; J2543; J7030; Q9967

== ENCOUNTER 2018-12-30 09:46 | Emergency (ER) | payer MEDICARE ==
[~2018-12-30] VITALS: Ht 149.9 cm; Wt 55.3 kg
[~2018-12-30 09:46] MED LIST changes: +FOLIC ACID1 MG PO; +METOPROLOL TART25 MG PO; +SUCRALFATE1 GM PO
--- OUTSIDE RECORDS SUMMARY | 2018-12-30 09:51 | XMS REPORT | CCD ---
Author Author Auto Generated Organization [facility] Outpatient [facility] Address Unknown Phone Unavailable Care Team Providers Care [employer] Instructor Name Role Phone Taiwo Gilbert CP Allergies, Adverse Reactions, Alerts Substance Reaction Status aspirin Active Avelox Active codeine Active Problem List Condition Effective Dates Status Angina Active Chest Pain Active Coronary artery disease Active Diabetes Mellitus Active
--- OUTSIDE RECORDS SUMMARY | 2018-12-30 09:51 | XMS REPORT | Summary of Care ---
Author Author [facility] [place] Organization [facility] [place] Address Unknown Phone Unavailable Encounter HQ Sivakumar_lorna(FIN) [id number] Date(s): 04/15/18 - 04/15/18 [facility] [place] [address] [place] [phone] Encounter Diagnosis Encounter for screening mammogram for malignant neoplasm of breast (Final) - 04/20/18 Discharge Disposition: Home or Self Care Attending Physician: Taiwo Gilbert MD Referring Physician: Taiwo Gilbert MD Vital Signs No data available for this section Problem List Condition Effective Dates Status Health Status Informant Angina(Confirmed) Active CHEST Active PAIN(Confirmed) Coronary artery Active disease(Confirmed) DIABETES Active MELLITUS(Confirmed) Allergies, Adverse Reactions, Alerts Substance Reaction Severity Status codeine Active aspirin Active Avelox Active Medications No data available for this section Results No data available for this section Immunizations No data available for this section Procedures No data available for this section Social History Social History Type Response Assessment and Plan No data available for this section
--- OUTSIDE RECORDS SUMMARY | 2018-12-30 09:51 | XMS REPORT | Summary of Care ---
Author Organization Unknown Address Unknown Phone Unavailable Encounter HQ Encntr_lorna(PEDRO) [id number] Date(s): 07/14/14 - 07/14/[address] [facility] Outpatient Imaging - [address] [address] [place] Discharge Disposition: Home Physician Attending: Taiwo Gilbert MD Reason for Visit V76.12 - SCREEN MAMMOGRA Problem List Condition Effective Dates Status Health Status Informant Angina(Confirmed) Active CHEST Active PAIN(Confirmed) Coronary artery Active disease(Confirmed) DIABETES Active MELLITUS(Confirmed) Allergies, Adverse Reactions, Alerts Substance Reaction Severity Status aspirin Active Avelox Active codeine Active Medications No data available for this section Medications Administered During Your Visit No data available for this section Immunizations No data available for this section Social History Social History Type Response
--- OUTSIDE RECORDS SUMMARY | 2018-12-30 09:51 | XMS REPORT | Summary of Care ---
Author Author [facility] [place] Organization [facility] [place] Address Unknown Phone Unavailable Encounter HQ Encntr_lorna(FIN) [id number] Date(s): 04/29/16 - 04/29/16 [facility] [place] [address] [place] [phone] Discharge Disposition: Home or Self Care Attending Physician: Taiwo Gilbert MD Vital Signs No [...]
[2018-12-30] MEDS ORDERED: CIPRO500 MG PO (10:23)
[2018-12-30] MEDS ORDERED: PHENAZOPYRIDIN100 MG PO (10:25)
== END 2018-12-30 10:43 | disposition home or self-care (01) ==
LOC: FSED 09:46
DX: R30.0 Dysuria (principal); N30.91 Cystitis, unspecified with hematuria; I10 Essential (primary) hypertension; E11.9 Type 2 diabetes mellitus without complications; I25.10 Atherosclerotic heart disease of native coronary artery without angina pectoris; E78.5 Hyperlipidemia, unspecified; Z95.1 Presence of aortocoronary bypass graft
CPT/HCPCS: 81003; 99283

== ENCOUNTER → 2019-07-08 | Outpatient (CLI) | payer MEDICARE ==
[~2019-07-08] MED LIST changes: +CIPRO500 MG PO; +PHENAZOPYRIDIN100 MG PO
--- NOTE | 2019-07-08 10:16 | Diagnostic Imaging Report ---
MRI of the right shoulder without contrast. History: Shoulder pain. Decreased range of motion. Rotator cuff tear. Pain not responding to conservative management. Comparison: None Technique: Coronal PD FS, sagital PD FS, and axial PD and PD FS. Findings: Rotator cuff: Rotator cuff tendinosis with midsubstance degeneration and full-thickness tear involving the supraspinatus and infraspinatus tendons at the humeral insertion site. Additionally, there is partial tearing involving the subscapularis tendon. There is retraction of the torn fibers to the level of the glenoid and there is moderate supraspinatus and infraspinatus muscle atrophy best seen on sagittal image 15. The teres minor tendon is intact. Globular calcification is seen between the humeral head and acromion which could be due to a calcified loose body. Osseous acromion complex: Type II acromion with mild lateral downsloping. Moderate degenerative arthrosis at the acromioclavicular joint. Humeral head approaches the undersurface of the acromion. Mild subacromial/subdeltoid bursitis. Glenohumeral joint: Degenerative type tearing of the labrum. The articular cartilage surfaces are thinned with regions of fraying fissuring. Peripheral marginal osteophytes. Effusion/synovitis in the rotator interval and subcoracoid space. Biceps tendon: Intra-articular biceps tendinosis with partial tearing at the biceps anchor. Other findings: Negative for muscle denervation or osseous fracture. Impression: Full-thickness rotator cuff tear with retraction and muscle atrophy as described above. Moderate degenerative arthrosis at the acromioclavicular joint with mild subacromial/subdeltoid bursitis. Degenerative arthrosis in the glenohumeral joint with effusion/synovitis in the rotator interval and subcoracoid space. Intra-articular biceps tendinosis with partial tearing at the biceps anchor. Signed by: Dr. Amilcar Shelton M.D. on 07/08/2019 10:13 AM
== END ==
LOC: MRI 07:50
PROVIDERS: ATTEND Internal Medicine
DX: M75.101 Unspecified rotator cuff tear or rupture of right shoulder, not specified as traumatic (principal)

== ENCOUNTER → 2021-02-19 | Outpatient (CLI) | payer MEDICARE | LOC: MAMMO 12:41 | PROVIDERS: ATTEND Internal Medicine | DX: Z12.31 Encounter for screening mammogram for malignant neoplasm of breast (principal) | CPT/HCPCS: 77067 ==

== ENCOUNTER 2022-06-15 17:56 | Emergency (ER) | payer MEDICARE, OTHER ==
[~2022-06-15] VITALS: Ht 149.9 cm; Wt 55.3 kg
[2022-06-15] MEDS ORDERED: ONDANSETRON HCL INJ 2MG/ML 2ML 2 MG/ML VIAL IV STA (18:22)
[2022-06-15] MEDS ORDERED: ACETAMINOPHEN 325 MG TAB PO ONE (18:30)
[2022-06-15] MEDS ORDERED: SODIUM CHLORIDE 0.9% 1000ML 1,000 ML IV ONE (18:30)
[2022-06-15 18:34] LABS: BASOPHILS # (AUTO) 0.1 (0.0-0.1); BASOPHILS % 0.6 % (0.0-1.0); EOSINOPHILS # (AUTO) 0.3 (0.0-0.4); EOSINOPHILS % 2.7 % (0.0-6.0); HEMATOCRIT 32.2 % (34.2-44.1); HEMOGLOBIN 9.8 g/dL (12.0-16.0); LYMPHOCYTES # (AUTO) 1.9 (1.0-3.2); LYMPHOCYTES % 19.4 % (18.0-39.1); MEAN CORPUSCULAR HEMOGLOBIN 26.9 pg (28-32); MEAN CORPUSCULAR HGB CONC 30.4 g/dL (31-35); MEAN CORPUSCULAR VOLUME 88.5 fL (81-99); MONOCYTES # (AUTO) 0.8 (0.2-0.8); MONOCYTES % 7.8 % (4.4-11.3); NEUTROPHILS # (AUTO) 6.8 (2.1-6.9); NEUTROPHILS % 69.2 % (38.7-80.0); PLATELET COUNT 399 x10e3/uL (140-360); RED BLOOD COUNT 3.64 x10e6/uL (3.6-5.1); RED CELL DISTRIBUTION WIDTH 14.3 % (11.7-14.4)
[2022-06-15 18:56] LABS: ALBUMIN 2.9 g/dL (3.5-5.0); ALBUMIN/GLOBULIN RATIO 0.5 (0.8-2.0); ANION GAP 20.2 mmol/L (8-16); CALCIUM 9.5 mg/dL (8.4-10.2); CREATININE, SERUM 0.95 mg/dL (0.57-1.11); POTASSIUM 4.2 mmol/L (3.5-5.1)
[2022-06-15 19:02] LABS: CREATINE KINASE MB 0.3 ng/mL (0-5.0)
[2022-06-15 20:49] LABS: CLARITY,URINE CLEAR (CLEAR); COLOR,URINE YELLOW (YELLOW); LEUKOCYTE ESTERASE ,URINE NEGATIVE (NEGATIVE); NITRITE,URINE NEGATIVE (NEGATIVE)
[2022-06-15 20:50] LABS: KETONES,URINE TRACE (NEGATIVE); PROTEIN,URINE DIPSTICK 2+ (NEGATIVE); URINE UROBILINOGEN 0.2 mg/dL (0.2 - 1)
[2022-06-15 21:00] LABS: BACTERIA,URINE MODERATE /HPF; EPITHELIAL CELLS,URINE FEW /LPF; RBC,URINE 0-5 /HPF (0-5)
[2022-06-15] MEDS ORDERED: CEFDINIR300 MG PO (21:25)
[2022-06-15] MEDS ORDERED: ANTIVERT25 M1 PO (21:25)
== END 2022-06-15 21:45 | disposition home or self-care (01) ==
LOC: ER 18:13
DX: R50.9 Fever, unspecified (principal); S06.0X0A Concussion without loss of consciousness, initial encounter; W18.39XA Other fall on same level, initial encounter; Y92.89 Other specified places as the place of occurrence of the external cause; N39.0 Urinary tract infection, site not specified; R10.30 Lower abdominal pain, unspecified; I10 Essential (primary) hypertension; E78.5 Hyperlipidemia, unspecified; Z95.1 Presence of aortocoronary bypass graft; R94.31 Abnormal electrocardiogram [ECG] [EKG]
CPT/HCPCS: 36415; 70450; 71045; 80053; 81001; 82550; 82553; 83605; 84484; 85025; 87040; 87086; 93005; 99284; J0696; J7030; U0002